=== PATIENT | female | born 2000 | race Caucasian/White ===

== ENCOUNTER 2018-11-27 17:24 | Emergency (ER) | payer MEDICAID ==
[~2018-11-27] VITALS: Ht 165.1 cm; Wt 51.3 kg
[2018-11-27 17:26] VITALS: Ht 165.1 cm; Wt 51.3 kg
[2018-11-27 18:44] LABS: BASOPHIL % 1.3 % (0-2); PLATELET COUNT 187 x10^3mcL (130-400)
[2018-11-27 18:45] LABS: RED CELL DISTRIBUTION WIDTH 14.6 % (11.5-14.5)
[2018-11-27 18:51] LABS: microscopic required? NO
[2018-11-27 19:02] LABS: UA SPECIFIC GRAVITY 1.015 (1.005-1.035); urine erythrocyte NEGATIVE (NEGATIVE)
[2018-11-27 19:03] LABS: CALCIUM 8.2 mg/dL (8.5-10.1); CARBON DIOXIDE 25.7 mmol/L (21-32); CHLORIDE SERUM 106 mmol/L (98-107); CREATININE SERUM 0.7 mg/dL (0.6-1.0); GFR1 > 60 mL/min; GLUCOSE SERUM 86 mg/dL (74-106); POTASSIUM SERUM 3.8 mmol/L (3.5-5.1); SODIUM SERUM 141 mmol/L (136-145)
[2018-11-27 19:09] LABS: ALBUMIN 3.9 g/dL (3.4-5.0); ALKALINE PHOSPHATASE 44 U/L (46-116); ALT/SGPT 20 U/L (14-59); AST/SGOT 14 U/L (15-37); TOTAL PROTEIN, SERUM 7.3 g/dL (6.4-8.2); TRIGLYCERIDES 93 mg/dL (<150)
[2018-11-27 19:14] LABS: CHOLESTEROL 109 mg/dL (<200); CHOLESTEROL/HDL RATIO 1.8; HDL CHOLESTEROL 61 mg/dL (40-60)
[2018-11-27 20:59] VITALS: BP 117/71
== END 2018-11-27 20:59 | disposition home or self-care (01) ==
LOC: ED 17:24
PROVIDERS: Specialist
DX: R10.11 Right upper quadrant pain (principal)
CPT/HCPCS: 36415; J1885; Q0092